=== PATIENT | female | born 1995 | race Caucasian/White ===

== ENCOUNTER → 2019-03-03 | Outpatient (REF) | payer BC ==
[2019-03-03 17:16] LABS: BASO % 0.4 % (0.0-1.0); EOS # 0.2 10^3/uL (0.0-0.50); EOS % 2.2 % (0.0-3.0); HEMATOCRIT 44.1 % (36.0-47.0); HEMOGLOBIN 14.5 g/dl (12.0-15.5); LYMPH # 2.1 10^3/uL (1.5-6.5); LYMPH % 28.1 % (24.0-44.0); MEAN CORPUSCULAR HEMOGLOBIN 29.7 pg (27.0-33.0); MEAN CORPUSCULAR HGB CONC 32.9 g/dl (32.0-36.5); MEAN CORPUSCULAR VOLUME 90.2 fl (80.0-96.0); MONO # 0.5 10^3/uL (0.0-0.8); MONO % 6.6 % (0.0-5.0); NEUTROPHILS # 4.8 10^3/uL (1.8-7.7); NEUTROPHILS % 62.3 % (36.0-66.0); PLATELET COUNT, AUTOMATED 271 10^3/uL (150-450); RED BLOOD COUNT 4.89 10^6/uL (4.00-5.40); WHITE BLOOD COUNT 7.6 10^3/uL (4.0-10.0)
[2019-03-03 17:17] LABS: C REACTIVE PROTEIN QUANTITATIV 0.67 MG/DL (0.00-0.30); THYROID STIMULATING HORMONE 2.29 uIU/ML (0.358-3.740)
[2019-03-11 00:08] LABS: C1 ESTER INHIB. NON FUNCTIONAL 26 mg/dL (21-39); C1 ESTERASE INHIB. FUNCTIONAL 84 (.); G6PD2 4.79 x10E6/uL (3.77-5.28); G6PD3 257 (146-376)
== END ==
LOC: M LAB REF 15:56
PROVIDERS: ATTEND Physician Assistant Medical
DX: L50.1 Idiopathic urticaria (principal); T78.3XXA Angioneurotic edema, initial encounter